=== PATIENT | male | born 1965 | race Caucasian/White ===

== ENCOUNTER 2018-09-06 20:47 | Emergency (ER) | payer SELFPAY, OTHER ==
[2018-09-06] MEDS: ONDANSETRON (ODT) 4 MG TAB ODT (22:24)
[2018-09-06] MEDS: ACETAMINOPHEN 325 MG TAB PO (22:25)
== END 2018-09-06 23:59 | disposition home or self-care (01) ==
LOC: FTE 20:47
DX: S06.0X1A Concussion with loss of consciousness of 30 minutes or less, initial encounter (principal); W18.09XA Striking against other object with subsequent fall, initial encounter; Y92.9 Unspecified place or not applicable
CPT/HCPCS: 70450; 72125; 99284-25